=== PATIENT | female | born 1950 | race African-American/Black ===

== ENCOUNTER 2021-04-09 13:00 | Emergency (ER) | payer MEDICARE, BC ==
[~2021-04-09] VITALS: Ht 167.6 cm; Wt 77.0 kg
[~2021-04-09 13:00] MED LIST: ASPIRIN EC81 MG PO; FISH OIL1000 MG PO; FLEXERIL10 MG PO; HYDROCHLOROT12.5 MG PO; LISINOPRIL10 MG PO; NAPROSYN500 MG PO; PRAVASTATIN20 MG PO; PRINZIDE1 TA1; VITAMIN D1000 UNIT PO; [UNRECOGNIZED DRUG - REMARK]
[2021-04-09 15:24] LABS: URINE BILIRUBIN - DIPSTICK NEGATIVE (NEGATIVE); URINE BLOOD DIPSTICK SMALL (NEGATIVE); URINE COLOR YELLOW; URINE GLUCOSE - DIPSTICK NEGATIVE (NEGATIVE); URINE KETONE 15 mg/dL (NEGATIVE); URINE LEUK ESTERASE NEGATIVE (NEGATIVE); URINE PH 5.5 (4.5-8.0); URINE PROTEIN - DIPSTICK NEGATIVE (NEG-TRACE); URINE SPECIFIC GRAVITY 1.025; URINE UROBILINOGEN - DIPSTICK 0.2 E.U./dL (0.2)
[2021-04-09 15:24] LABS: HEMATOCRIT 45.3 % (37.0-47.0); HEMOGLOBIN 14.2 g/dl (12.0-16.0); IMMATURE GRANULOCYTES 0.2 % (0.0-5.0); MEAN CELL VOLUME 91.9 fL CALC (80.0-100.0); MEAN CORPUSCULAR HGB 28.8 pG CALC (26.0-32.0); MEAN CORPUSCULAR HGB CONC 31.3 g/dL CAL (32.0-36.0); NEUT# 7.94 thou/uL (2.00-7.15); RED BLOOD COUNT 4.93 mill/uL (4.20-5.60); RED CELL DISTRI WIDTH 14.1 % (11.5-15.5)
[2021-04-09 15:26] LABS: URINE NITRITE - DIPSTICK NEGATIVE (Negative)
[2021-04-09 15:30] LABS: URINE RBC 0-2 RBC/hpf (0-5)
[2021-04-09 16:17] LABS: ALBUMIN 4.8 g/dL (3.2-5.0); ALKALINE PHOSPHATASE 79 u/l (38-126); ANION GAP 17 (6-22 (CALC)); BILIRUBIN, TOTAL 0.8 mg/dL (0.0-1.4); BUN 21 mg/dL (8-23); BUN/CREATININE RATIO 31 (12-20 (CALC)); CARBON DIOXIDE 25 mmol/l (22-30); CHLORIDE 102 mmol/l (95-108); CREATININE 0.7 mg/dL (0.5-1.0); GFR > 60 ML/MIN (>=60 (CALC)); GFR FOR AFR.AMER. > 60 ML/MIN (>=60 (CALC)); POTASSIUM 4.1 mmol/l (3.5-5.1); SGOT/AST 27 u/l (9-36); SODIUM 140 mmol/l (137-146); TOTAL PROTEIN 8.3 g/dL (6.3-8.2)
[2021-04-09 17:55] VITALS: BP 149/63
== END 2021-04-09 17:57 | disposition short-term general hospital (02) ==
LOC: ED 13:00
PROVIDERS: Emergency Medicine
PROC: 0T9B70Z Drainage of Bladder with Drainage Device, Via Natural or Artificial Opening (ICD-10-PCS; principal; 2021-04-09)
DX: I62.00 Nontraumatic subdural hemorrhage, unspecified (principal); R53.1 Weakness; R26.81 Unsteadiness on feet; I10 Essential (primary) hypertension; E78.00 Pure hypercholesterolemia, unspecified; Z20.822 Contact with and (suspected) exposure to COVID-19

== ENCOUNTER → 2021-11-29 | Emergency (ER) | payer MEDICARE, BC ==
[~2021-11-29] VITALS: Ht 167.6 cm; Wt 70.0 kg
[2021-11-29 10:02] VITALS: BP 118/61
[2021-11-29 10:15] VITALS: BP 123/64
[2021-11-29 10:22] LABS: HEMATOCRIT 44.1 % (37.0-47.0); HEMOGLOBIN 14.3 g/dl (12.0-16.0); IMMATURE GRANULOCYTES 0.2 % (0.0-5.0); MEAN CELL VOLUME 89.5 fL CALC (80.0-100.0); MEAN CORPUSCULAR HGB CONC 32.4 g/dL CAL (32.0-36.0); NEUT# 9.1 thou/uL (2.00-7.15); RED BLOOD COUNT 4.93 mill/uL (4.20-5.60); RED CELL DISTRI WIDTH 14.3 % (11.5-15.5)
[2021-11-29 10:39] LABS: ALBUMIN 5.4 g/dL (3.2-5.0); BILIRUBIN, TOTAL 0.8 mg/dL (0.0-1.4); TOTAL PROTEIN 8.7 g/dL (6.3-8.2)
[2021-11-29 10:40] LABS: CREATININE 5.1 mg/dL (0.5-1.0)
[2021-11-29 10:42] LABS: INTERNATIONAL NORMALIZED RATIO 1.1 RATIO (0.7-1.3); PROTHROMBIN TIME 10.5 SECONDS (9.0-12.5)
[2021-11-29 11:00] VITALS: BP 103/55
[2021-11-29 11:11] LABS: URINE BLOOD DIPSTICK SMALL (NEGATIVE); URINE COLOR YELLOW; URINE GLUCOSE - DIPSTICK NEGATIVE (NEGATIVE); URINE KETONE TRACE mg/dL (NEGATIVE); URINE LEUK ESTERASE NEGATIVE (NEGATIVE); URINE PH 5.5 (4.5-8.0); URINE PROTEIN - DIPSTICK 100 mg/dL (NEG-TRACE); URINE SPECIFIC GRAVITY >=1.030; URINE UROBILINOGEN - DIPSTICK 0.2 E.U./dL (0.2)
[2021-11-29 11:15] VITALS: BP 109/59
[2021-11-29 11:21] LABS: URINE BILIRUBIN - DIPSTICK SMALL (NEGATIVE); URINE NITRITE - DIPSTICK NEGATIVE (Negative)
[2021-11-29 11:30] VITALS: BP 95/53
[2021-11-29 11:30] LABS: URINE WBC 0-2 WBC/hpf (0-5)
[2021-11-29 11:47] VITALS: BP 95/53
== END | disposition short-term general hospital (02) ==
LOC: ED 09:55
PROVIDERS: Family Medicine
DX: I63.9 Cerebral infarction, unspecified (principal); R47.01 Aphasia; G81.91 Hemiplegia, unspecified affecting right dominant side; R29.705 NIHSS score 5; I12.9 Hypertensive chronic kidney disease with stage 1 through stage 4 chronic kidney disease, or unspecified chronic kidney disease; N18.9 Chronic kidney disease, unspecified; E78.5 Hyperlipidemia, unspecified
CPT/HCPCS: Q3014